=== PATIENT | female | born 1990 | race Caucasian/White ===

== ENCOUNTER → 2020-02-15 | Outpatient (CLI) | payer BC, MEDICAID | END | disposition home or self-care (01) | LOC: STAR 14:13 | PROVIDERS: ATTEND Orthopaedic Surgery | DX: Z20.828 Contact with and (suspected) exposure to other viral communicable diseases (principal); S83.241A Other tear of medial meniscus, current injury, right knee, initial encounter; M25.561 Pain in right knee; X58.XXXA Exposure to other specified factors, initial encounter; Y93.89 Activity, other specified; Y92.89 Other specified places as the place of occurrence of the external cause; Y99.8 Other external cause status | CPT/HCPCS: 87635 ==

== ENCOUNTER 2020-02-21 13:28 | Day surgery (SDC) | payer BC, MEDICAID ==
[~2020-02-21] VITALS: Ht 165.1 cm; Wt 103.3 kg
[~2020-02-21 13:28] MED LIST: CEFAZOLIN 1,000 MG ONE; EPINEPHRINE 1 MG/ML, 1ML ONE; FENTANYL PF 250 MCG/5ML ONE; LIDOCAINE/PF 1%, 30ML ONE; MIDAZOLAM 1 MG/ML, 2ML ONE; ONDANSETRON 2MG/ML, 2ML ONE; PROPOFOL 10 MG/ML, 20ML ONE; ROPIvacaine/PF 0.5%, 30 ML ONE
[2020-02-21] MEDS ORDERED: LACTATED RINGERS 1,000 ML IV SCH (14:00)
[2020-02-21] MEDS ORDERED: CHLORHEXIDINE 15 ML UDC MM ONE (14:00)
[2020-02-21 14:12] LABS: HCG UR SG 1.019 (1.003-1.030)
[2020-02-21] MEDS ORDERED: DEXAMETHASONE 4 MG/ML, 1ML ONE (15:54)
[2020-02-21] MEDS ORDERED: MEPERIDINE/PF 25MG/0.5ML IVPush PRN (16:00)
[2020-02-21] MEDS ORDERED: morphine SULFATE 10 MG/ML, 1ML IVPush PRN (16:00)
[2020-02-21] MEDS ORDERED: FENTANYL PF 100 MCG/2ML IV PRN (16:00)
[2020-02-21] MEDS ORDERED: HALOPERIDOL 5 MG/ML IV PRN (16:00)
[2020-02-21] MEDS ORDERED: LABETALOL 5MG/ML, 20ML IV PRN (16:00)
[2020-02-21] MEDS ORDERED: PROMETHAZINE 25 MG/ML, 1ML IVPush PRN (16:00)
[2020-02-21] MEDS ORDERED: OXYcodone 5 MG/5 ML ORAL.SOL UDC PO PRN (16:00)
[2020-02-21] MEDS ORDERED: hydrALAzine 20 MG/ML, 1ML IV PRN (16:00)
[2020-02-21] MEDS ORDERED: ACETAMINOPHEN 325 MG TABLET PO PRN (16:00)
[2020-02-21] MEDS ORDERED: OXYcodone 5 MG/5 ML ORAL.SOL UDC ONE (16:47)
[2020-02-21] MEDS ORDERED: ACETAMINOPHEN 650 MG/20.3 ML UDC ONE (16:47)
[2020-02-21] MEDS ORDERED: KETOROLAC 30 MG/1 ML ONE (18:25)
[2020-02-21] MEDS ORDERED: KETOROLAC 30 MG/1 ML IVPush ONE (18:30)
== END 2020-02-21 19:20 | disposition home or self-care (01) ==
LOC: OR 13:28
PROVIDERS: ATTEND Orthopaedic Surgery
DX: S83.241A Other tear of medial meniscus, current injury, right knee, initial encounter (principal); M67.51 Plica syndrome, right knee; M65.861 Other synovitis and tenosynovitis, right lower leg; M22.41 Chondromalacia patellae, right knee; G43.909 Migraine, unspecified, not intractable, without status migrainosus; Z79.3 Long term (current) use of hormonal contraceptives; Z82.61 Family history of arthritis; X58.XXXA Exposure to other specified factors, initial encounter; Y93.89 Activity, other specified; Y92.89 Other specified places as the place of occurrence of the external cause; Y99.8 Other external cause status
CPT/HCPCS: 29881; 81025; J0171; J0690; J1100; J2250; J2405; J2704; J2795; J3010; J7120